=== PATIENT | female | born 1945 | race African-American/Black ===

== ENCOUNTER 2017-06-29 23:47 | Inpatient (IN) | payer OTHER ==
[~2017-06-29] VITALS: Ht 165.1 cm; Wt 79.8 kg
--- NOTE | 2017-06-30 00:03 | NUR ---
BB SELF; TIGHTNESS IN CHEST X 3 HOURS. PT AOX3 RR EVEN AND UNLABORED. NO SOB NOTED. NAD NOTED. NO NVD AT THIS TIME. PT NOT DIAPHORETIC. PT GOWNED AND PLACED ON MONITOR WAITING FOR MD BENJAMIN.
[2017-06-30] MEDS ORDERED: ASPIRIN 325 MG TABLET PO ONE (00:30)
[2017-06-30] MEDS ORDERED: NITROGLYCERIN 0.4 MG/TAB BOTTLE SL ONE (00:30)
[2017-06-30 00:39] LABS: CALCIUM, SERUM 9.1 mg/dL (8.5-10.1); CARBON DIOXIDE 26 mmol/L (21-32); CHLORIDE 107 mmol/L (98-107); GLUCOSE 89 mg/dL (74-106); POTASSIUM 3.7 mmol/L (3.5-5.1); SODIUM SERUM 142 mmol/L (136-145); UREA NITROGEN, BLOOD 14 mg/dL (7-18)
--- NOTE | 2017-06-30 00:46 | NUR ---
RADIOLOGY AT BEDSIDE FOR CXR
[2017-06-30 00:47] LABS: TROPONIN I < 0.017 ng/mL (0.00-0.056)
[2017-06-30 00:48] LABS: BASOPHILS # (AUTO) 0.1 /CMM (0.0-0.2); BASOPHILS % (AUTO) 0.7 % (0.0-2.0); EOSINOPHILS # (AUTO) 0.4 /CMM (0.0-0.7); HEMATOCRIT 40 % (33-45); HEMOGLOBIN 13.2 g/dL (11.5-14.8); INR 0.96 (0.87-1.13); LYMPHOCYTES # (AUTO) 2.6 /CMM (0.8-4.8); LYMPHOCYTES % (AUTO) 34.1 % (20.0-44.0); MEAN CORPUSCULAR HEMOGLOBIN 31 PG (26.0-33.0); MEAN CORPUSCULAR HGB CONC 33 g/dl (31.0-36.0); MEAN CORPUSCULAR VOLUME 92 fL (82-100); MONOCYTES # (AUTO) 0.6 /CMM (0.1-1.30); MONOCYTES % (AUTO) 7.4 % (2.0-12.0); NEUTROPHILS # (AUTO) 4.1 /CMM (1.8-8.9); NEUTROPHILS % (AUTO) 52.8 % (43.0-81.0); PLATELET COUNT (AUTO) 295 /CMM (150-450); PROTHROMBIN TIME 10.2 SECS (9.5-12.7); RDW COEFFICIENT OF VARIATION 13.2 (11.5-15.0); RED BLOOD CELL COUNT(AUTO) 4.31 MIL/uL (4.0-5.2); WHITE BLOOD COUNT (AUTO) 7.7 K/uL (4.3-11.0)
[2017-06-30] MEDS ORDERED: ASPIRIN 325 MG TABLET ONE (00:50)
--- NOTE | 2017-06-30 01:11 | NUR ---
DR. ROSE AT BEDSIDE SPEAKING TO PT REGARDING POC
[2017-06-30] MEDS ORDERED: HYDROCODONE/APAP 10/325MG 1 EA TABLET ONE (01:16)
--- NOTE | 2017-06-30 01:29 | NUR ---
DR. ROSE SPEAKING TO DR. HERCULES REGARDING ADMISSION
[2017-06-30] MEDS ORDERED: HYDROCODONE/APAP 10/325MG 1 EA TABLET PO ONE (01:30)
--- NOTE | 2017-06-30 01:30 | NUR ---
ORDERS RECEIVED BY DR. HERCULES
[2017-06-30] MEDS ORDERED: ASPI-605 PO (01:37)
[2017-06-30] MEDS ORDERED: AMLO1CAP8 PO (01:37)
[2017-06-30] MEDS ORDERED: FLUO40CA8 PO (01:37)
[2017-06-30] MEDS ORDERED: TRAZ-147 PO (01:37)
--- NOTE | 2017-06-30 01:38 | NUR ---
PT ASSIGNED TO [facility] 306-1
--- NOTE | 2017-06-30 01:41 | NUR ---
REPORT GIVEN TO JOHNSON GRACIA FOR TELE BED 306-1
[2017-06-30 02:00] VITALS: BP 171/116
[2017-06-30] MEDS ORDERED: Potassium Chloride 20 MEQ in IV NS 0.9% 1,000 ML IV PRN (02:00)
[2017-06-30] MEDS ORDERED: hydrALAZINE HCL 10 MG TABLET PO PRN (02:00)
--- NOTE | 2017-06-30 02:05 | NUR ---
PT TRASNFERRED TO [facility] 306-1 FOR TERI
[2017-06-30] MEDS ORDERED: ONDANSETRON HCL/PF 4 MG/2 ML VIAL ONE (02:22)
[2017-06-30] MEDS ORDERED: HYDROMORPHONE INJ 2 MG/ML DISP.SYRIN ONE (02:24)
[2017-06-30] MEDS: HYDROMORPHONE INJ 2 MG/ML DISP.SYRIN IV PRN ×4 (02:29→17:14)
[2017-06-30] MEDS ORDERED: HYDROMORPHONE 1 MG/1 ML DISP.SYRIN IV PRN (02:30)
[2017-06-30] MEDS ORDERED: ONDANSETRON HCL/PF 4 MG/2 ML VIAL IV PRN (02:30)
[2017-06-30 04:00] VITALS: BP 122/73
[2017-06-30] MEDS ORDERED: IV PREMIX 0.45% NS + KCL 1,000 ML IV ONE (04:05)
[2017-06-30 04:30] LABS: BASOPHILS % (AUTO) 0.6 % (0.0-2.0); EOSINOPHILS # (AUTO) 0.3 /CMM (0.0-0.7); EOSINOPHILS % (AUTO) 4.1 % (0.0-6.0); HEMATOCRIT 39 % (33-45); HEMOGLOBIN 13.1 g/dL (11.5-14.8); LYMPHOCYTES # (AUTO) 2.5 /CMM (0.8-4.8); LYMPHOCYTES % (AUTO) 31.1 % (20.0-44.0); MEAN CORPUSCULAR HEMOGLOBIN 31 PG (26.0-33.0); MEAN CORPUSCULAR HGB CONC 33 g/dl (31.0-36.0); MEAN CORPUSCULAR VOLUME 92 fL (82-100); MONOCYTES # (AUTO) 0.5 /CMM (0.1-1.30); MONOCYTES % (AUTO) 6.2 % (2.0-12.0); NEUTROPHILS # (AUTO) 4.7 /CMM (1.8-8.9); PLATELET COUNT (AUTO) 292 /CMM (150-450); RDW COEFFICIENT OF VARIATION 13.3 (11.5-15.0); RED BLOOD CELL COUNT(AUTO) 4.26 MIL/uL (4.0-5.2); WHITE BLOOD COUNT (AUTO) 8.1 K/uL (4.3-11.0)
[2017-06-30 04:49] LABS: ALBUMIN 3.8 g/dL (3.4-5.0); BILIRUBIN,TOTAL 0.3 mg/dL (0.2-1.0); CALCIUM, SERUM 8.6 mg/dL (8.5-10.1); POTASSIUM 3.8 mmol/L (3.5-5.1); TOTAL PROTEIN, SERUM 7.6 g/dL (6.4-8.2)
--- NOTE | 2017-06-30 06:37 | NUR ---
PROP SAWYER NOTES AWAKE & RESPONSIVE. NOT IN ANY DISTRESS. NO SOB NOTED. DENIES ANY PAIN OR DISCOMFORT AT THIS TIME. ON TELE SB @ 58 WITH IVF INFUSING WELL. MONITORED ACCORDINGLY. CALL LIGHT WITHIN REACH. BED IN LOWEST POSITION. SR UP X 2 FOR SAFETY. WILL ENDORSE TO NEXT SHIFT.
[2017-06-30 06:59] VITALS: BP 135/77
[2017-06-30] MEDS ORDERED: PANTOPRAZOLE 40 MG TABLET.DR PO SCH (07:30)
--- NOTE | 2017-06-30 07:53 | NUR ---
BATTERY PARTS ASSEMBLER: INITIAL NOTE RECEIVED PT A/OX4. NO DISTRESS. NO SOB NOTED. SATING AT 96% ROOM AIR. NO CHEST PAIN NOTED. SKIN INTACT. NPO FOR POSSIBLE STRESS TEST. RUNNING 1/2 NS 20 KCL AT 75ML/HR ON RIGHT HAND. SITE CLEAR AND PATENT. NO REDNESS. NO INFILTRATION NOTED. RESTING COMFORTABLY IN BED. CALL LIGHT WITHIN REACH.
[2017-06-30] MEDS ORDERED: ISOSORBIDE MONONITRATE (30MG) 30 MG TAB.SR.24H PO SCH (09:00)
[2017-06-30] MEDS ORDERED: ASPIRIN 325 MG TABLET PO SCH (09:00)
[2017-06-30] MEDS ORDERED: AMLODIPINE BESYLATE 10 MG TABLET PO SCH (09:00)
--- NOTE | 2017-06-30 09:51 | NUR ---
PT HAS BEEN GIVEN PAIN MED DILAUDID 1 MG IV AND STILL CONTINUES TO BE IN PAIN NOTIFIED DR HERCULES WITH ORDERS MADE AND CARRIED OUT.
[2017-06-30] MEDS ORDERED: HYDROCODONE/APAP 5/325MG 1 EACH TABLET PO PRN (10:00)
[2017-06-30] MEDS ORDERED: REGADENOSON 0.4 MG/5 ML DISP.SYRIN IVP ONE (12:00)
--- NOTE | 2017-06-30 12:35 | NUR ---
Pt was picked up by Sha for Lexiscan Cardiac Stress Test.Stable V/S.Administered Dilaudid 1 mg IV for pain mgt for facial discomfort and will monitor,
--- NOTE | 2017-06-30 13:48 | NUR ---
PT RETURNED FROM NUCLEAR MEDICINE. NO LONGER NPO. WILL ADMINISTER ALL MISSED MEDICATIONS ORDERED FROM AM DUE TO BEING NPO. RESTING COMFORTABLY IN BED. CALL LIGHT WITHIN REACH.
--- NOTE | 2017-06-30 14:00 | NUR ---
PT TRANSFERRED BACK DOWN TO NUCLEAR MEDICINE FOR SECOND PART OF STRESS TEST.
[2017-06-30] MEDS: GABAPENTIN 300 MG CAPSULE PO SCH ×2 (14:05→17:14)
[2017-06-30] MEDS: METOPROLOL TARTRATE 50 MG TABLET PO SCH ×2 (14:06→17:14)
--- NOTE | 2017-06-30 15:53 | NUR ---
PT RETURNED FROM NUCLEAR MEDICINE. RESTING COMFORTABLY IN BED. CALL LIGHT WITHIN REACH.
[2017-06-30 16:00] VITALS: BP 118/71
[2017-06-30 17:14] VITALS: BP 117/71
--- NOTE | 2017-06-30 19:03 | NUR ---
MED SURGE RN: CLOSING NOTE PT A/OX4. TOOK ALL MEDICATION. NO ADVERSE REACTIONS NOTED. PAIN CONTROLLED WITH PAIN MEDICATIONS. NO DISTRESS. NO SOB NOTED. ON ROOM AIR SATING AT 98%. NO N/V. PT D/C ORDER PER MD TO HOME. ALL DISCHARGE PAPER WORK SIGNED AND DATED BY PT. EDUCATED PT ABOUT FOLLOW UP WITH PRODUCTION MAINTENANCE MECHANIC IN ONE WEEK. IV HEP LOCK D/C ON LEFT HAND. NO REDNESS NOTED, NO BLEEDING NOTED. AWAITING ARRIVAL OF FAMILY MEMBER TO TAKE HOME VIA PRIVATE CAR. ENDORSED TO NEXT SHIFT NURSE. RESTING COMFORTABLY IN BED. CALL LIGHT WITHIN REACH.
--- NOTE | 2017-06-30 19:50 | NUR ---
MS/RN OPENING NOTES RECEIVED ENDORSEMENT FROM AM RN REGARDING PATIENT DISCHARGE ORDER BY MD AND AWAITING FOR FAMILY TRANSPORTATION. PATIENT ALERT, OREINTED X3 WILL CONTINUE TO PROVIDE CARE AND F/U FOR FAMILY TO MIDDLE SCHOOL LIBRARIAN PATIENT.
--- NOTE | 2017-06-30 20:12 | NUR ---
ms/rn notes PATIENT ALERT, ORIENTED X3, ABLE TO VERBALIZE NEEDS, PICKED UP BY DAUGHTER AND ASSISTED W/ RN ON W/C TO RIDE INSIDE CAR. CAN AMBULATE W/ SUPERVISION AND INFORMED TO SEE MD/DENTIST FOR DENTAL CONCERN. ASSISTED AND PROVIDE EDUCATION FOR PAIN MGMT MONITORING AND F/U W/ MD FOR APPT.
[2017-06-30] MEDS ORDERED: ATORVASTATIN 10 MG TABLET PO SCH (22:00)
== END 2017-06-30 20:05 | disposition home or self-care (01) | DRG 206 ==
LOC: ER 23:51 → TELE 06-30 01:44 → MED 06-30 08:55
PROVIDERS: ADMIT Internal Medicine; ATTEND Internal Medicine
DX: M94.0 Chondrocostal junction syndrome [Tietze] (principal); I10 Essential (primary) hypertension; I25.2 Old myocardial infarction; Z86.73 Personal history of transient ischemic attack (TIA), and cerebral infarction without residual deficits; E78.5 Hyperlipidemia, unspecified; I25.10 Atherosclerotic heart disease of native coronary artery without angina pectoris; Z83.3 Family history of diabetes mellitus; Z98.61 Coronary angioplasty status
CPT/HCPCS: 36415; 71010-TC; 80048-TC; 80053-TC; 80061-TC; 84484-TC; 85025-TC; 85730-TC; 87081-TC; A4606; A9502; J1170; J2405; J2785; J3480; J3490; Z7610

== ENCOUNTER 2017-12-09 01:50 | Inpatient (IN) | payer OTHER ==
[~2017-12-09] VITALS: Ht 165.1 cm; Wt 78.9 kg
[~2017-12-09 01:50] MED LIST: AMLO1CAP8 PO; ASPI-605 PO; FLUO40CA8 PO; TRAZ-147 PO
--- NOTE | 2017-12-09 01:56 | NUR ---
PT C/O MID STERNAL CP X 3 DAYS AND A HEADACHE X 3 DAYS PT TOOK 162MG OF ASPIRIN. PT STATES PAIN LEVEL 9/10 RADIATING TO R SHOULDER/ARM. PT IS AAOX4. RESP EVEN AND UNLABORED. SKIN WNL AND WARM TO TOUCH. NO S/S OF ACUTE DISTRESS NOTED. PT PLACED IN GOWN AND IS PLACED ON THE MONITOR AND POX. AWAITING MD FOR EVAL.
--- NOTE | 2017-12-09 02:10 | NUR ---
BUSINESS SEGMENT MANAGER BEDSIDE FOR CHEST X-RAY
[2017-12-09] MEDS ORDERED: NITROGLYCERIN 0.4 MG/TAB BOTTLE ONE (02:23)
[2017-12-09] MEDS ORDERED: HYDROCODONE/APAP 5/325MG 1 EACH TABLET ONE (02:23)
[2017-12-09] MEDS ORDERED: NITROGLYCERIN 0.4 MG/TAB BOTTLE SL ONE (02:30)
[2017-12-09] MEDS ORDERED: hydrALAZINE HCL IV 20 MG VIAL IV ONE (02:30)
[2017-12-09] MEDS ORDERED: hydrALAZINE HCL IV 20 MG VIAL ONE (02:32)
--- NOTE | 2017-12-09 02:35 | NUR ---
Patient is resting comfortably in bed with eyes closed. Easily aroused. VSS. NO S/S OF DISCOMFORT NOTED.
[2017-12-09 02:43] LABS: BASOPHILS % (AUTO) 0.5 % (0.0-2.0); EOSINOPHILS # (AUTO) 0.5 /CMM (0.0-0.7); EOSINOPHILS % (AUTO) 6.7 % (0.0-6.0); HEMATOCRIT 36 % (33-45); HEMOGLOBIN 12.2 g/dL (11.5-14.8); LYMPHOCYTES # (AUTO) 2.5 /CMM (0.8-4.8); LYMPHOCYTES % (AUTO) 35.3 % (20.0-44.0); MEAN CORPUSCULAR HEMOGLOBIN 31 PG (26.0-33.0); MEAN CORPUSCULAR HGB CONC 34 g/dl (31.0-36.0); MEAN CORPUSCULAR VOLUME 91 fL (82-100); MONOCYTES # (AUTO) 0.5 /CMM (0.1-1.30); MONOCYTES % (AUTO) 7.2 % (2.0-12.0); NEUTROPHILS # (AUTO) 3.5 /CMM (1.8-8.9); NEUTROPHILS % (AUTO) 50.3 % (43.0-81.0); PLATELET COUNT (AUTO) 271 /CMM (150-450); RDW COEFFICIENT OF VARIATION 13.3 (11.5-15.0); RED BLOOD CELL COUNT(AUTO) 3.98 MIL/uL (4.0-5.2)
[2017-12-09 02:47] LABS: CALCIUM, SERUM 9.4 mg/dL (8.5-10.1); CARBON DIOXIDE 27 mmol/L (21-32); CHLORIDE 105 mmol/L (98-107); CREATININE 1.1 mg/dL (0.6-1.3); GLUCOSE 98 mg/dL (74-106); SODIUM SERUM 143 mmol/L (136-145); UREA NITROGEN, BLOOD 16 mg/dL (7-18)
[2017-12-09 02:51] LABS: INR 0.97 (0.87-1.13)
[2017-12-09 02:55] LABS: TROPONIN I < 0.017 ng/mL (0.00-0.056)
[2017-12-09 03:00] LABS: B-TYPE NATRIURETIC PEPTIDE 42 PG/ML (0-125)
--- NOTE | 2017-12-09 03:17 | NUR ---
REPORT GIVEN TO CARTER GASTON FOR TERI.
[2017-12-09] MEDS ORDERED: MAGNESIUM HYDROXIDE 30 ML UDC PO PRN (03:30)
[2017-12-09] MEDS ORDERED: MORPHINE SULFATE INJ 2 MG/ML DISP.SYRIN IV PRN (03:30)
[2017-12-09] MEDS ORDERED: Z GUARD REMEDY 2 OZ OINT TP PRN (03:30)
[2017-12-09] MEDS ORDERED: ACETAMINOPHEN 325 MG TABLET PO PRN (03:30)
[2017-12-09] MEDS ORDERED: ZOLPIDEM TARTRATE 5 MG TABLET PO PRN (03:30)
[2017-12-09] MEDS ORDERED: ONDANSETRON HCL/PF 4 MG/2 ML VIAL IVP PRN (03:30)
[2017-12-09 04:00] VITALS: BP 179/109
[2017-12-09] MEDS ORDERED: MORPHINE SULFATE INJ 4 MG/ML DISP.SYRIN ONE (04:13)
[2017-12-09] MEDS: HYDROCODONE/APAP 5/325MG 1 EACH TABLET PO PRN ×3 (04:40→17:05)
--- NOTE | 2017-12-09 04:49 | NUR ---
RN NOTES ADMITTED PATIENT FROM ER VIA STRETCHER ACCOMPANIED BY 2 STAFF WITH NO RESPIRATORY DISTRESS OR SHORTNESS OF BREATH. BREATHING EVEN AND UNLABORED. ALERT AND ORIENTED. VERBALLY ABLE TO COMMUNICATE NEEDS. COMPLAINT OF HEADACHE 07/18, MORPHINE INJ ADMINISTERED NOT EFFECTIVE. GAVE NORCO 5/325 1 TABLET, WITH SOME RELIEF. VITAL SIGNS WNL. WILL CONTINUE TO MONITOR.
--- NOTE | 2017-12-09 06:26 | NUR ---
RN CLOSING NOTES IN BED RESTING COMFORTABLY WITH NO DISTRESS NOTED. BREATHING EVEN AND UNLABORED. ROOM AIR TOLERATING WELL. PATIENT STILL WITH HEADACHE 01/16. WILL ENDORSE TO AM SHIFT FOR CONTINUITY OF CARE
--- NOTE | 2017-12-09 07:51 | NUR ---
RN INITIAL NOTES PT RECEIVED IN BED, ALERT AND ORIENTED, ABLE TO MAKE NEEDS KNOWN. PT COMPLAINING OF HEADACHE GREATER 10. RN SUGGESTED NON PHARMACOLOGICAL TO RELIEF HEADACHES. PT ACKNOWLEDGE AND UNDERSTANDING. RN WILL DISCUSS HOME MEDICATIONS, PT ABLE TO SELF TURN AND AMBULATE. NO SOB OR DISTRESS NOTED. RN WILL CONTINUE TO FOLLOW THROUGHOUT THE DAY.
[2017-12-09 08:00] VITALS: BP 129/73
[2017-12-09 08:05] LABS: BASOPHILS # (AUTO) 0.1 /CMM (0.0-0.2); BASOPHILS % (AUTO) 0.8 % (0.0-2.0); EOSINOPHILS # (AUTO) 0.5 /CMM (0.0-0.7); EOSINOPHILS % (AUTO) 6.6 % (0.0-6.0); HEMATOCRIT 38 % (33-45); HEMOGLOBIN 12.9 g/dL (11.5-14.8); LYMPHOCYTES # (AUTO) 1.6 /CMM (0.8-4.8); LYMPHOCYTES % (AUTO) 23.6 % (20.0-44.0); MEAN CORPUSCULAR HEMOGLOBIN 31 PG (26.0-33.0); MEAN CORPUSCULAR HGB CONC 34 g/dl (31.0-36.0); MEAN CORPUSCULAR VOLUME 90 fL (82-100); MONOCYTES # (AUTO) 0.5 /CMM (0.1-1.30); MONOCYTES % (AUTO) 6.7 % (2.0-12.0); NEUTROPHILS # (AUTO) 4.3 /CMM (1.8-8.9); NEUTROPHILS % (AUTO) 62.3 % (43.0-81.0); PLATELET COUNT (AUTO) 280 /CMM (150-450); RDW COEFFICIENT OF VARIATION 13.2 (11.5-15.0); WHITE BLOOD COUNT (AUTO) 6.9 K/uL (4.3-11.0)
[2017-12-09 08:13] VITALS: BP 129/73
[2017-12-09 08:22] LABS: CALCIUM, SERUM 9.4 mg/dL (8.5-10.1); PHOSPHORUS 3.6 mg/dL (2.5-4.9); POTASSIUM 3.6 mmol/L (3.5-5.1)
[2017-12-09] MEDS: ENOXAPARIN SODIUM 40 MG/0.4 ML DISP.SYRIN SQ SCH (08:49)
[2017-12-09] MEDS: AMLODIPINE BESYLATE 5 MG TABLET PO SCH (08:50)
[2017-12-09] MEDS: FLUOXETINE HCL 20 MG CAPSULE PO SCH (08:51)
[2017-12-09] MEDS: ASPIRIN 81 MG TAB.CHEW PO SCH (08:51)
[2017-12-09] MEDS: BENAZEPRIL HCL 10 MG TABLET PO SCH (08:51)
[2017-12-09 12:00] VITALS: BP 118/79
[2017-12-09] MEDS: METOPROLOL TARTRATE 50 MG TABLET PO SCH ×3 (12:38→23:57)
[2017-12-09 16:00] VITALS: BP 138/79
--- NOTE | 2017-12-09 18:07 | NUR ---
RN CLOSING NOTE Patient stable throughout the day , she is alert and oriented, patient remains without injury vitals within normal limits , no temp noted throughout the shift, no sob or distress noted. No edema noted, continue to provide knowledge with her blood pressure medications. Will continue plan of care and notify MD with any changes. Continuation of care will be endorsed to pm rn.
[2017-12-09 20:00] VITALS: BP_SYST 118; BP_SYST 125; BP_DIAS 75; BP_DIAS 79
--- NOTE | 2017-12-09 20:00 | NUR ---
RN NOTES RECEIVED PATIENT AWAKE IN BED WATCHING TV WITH NO DISTRESS NOTED. BREATHING EVEN AND UNLABORED. NO COMPLAINT OF PAIN OF THIS TIME. VITAL SIGNS WNL. ALERT AND ORIENTED. ABLE TO VERBALIZE NEEDS. WILL CONTINUE TO MONITOR
[2017-12-09] MEDS ORDERED: TRAZODONE 50 MG TABLET PO SCH (22:00)
[2017-12-10] VITALS: BP 138/75
[2017-12-10] MEDS: HYDROCODONE/APAP 5/325MG 1 EACH TABLET PO PRN
[2017-12-10 04:00] VITALS: BP 138/75
[2017-12-10] MEDS: METOPROLOL TARTRATE 50 MG TABLET PO SCH ×3 (05:37→18:06)
--- NOTE | 2017-12-10 05:38 | NUR ---
rn notes metoprolol held for low bp 91/53 and low hr 51bpm.
--- NOTE | 2017-12-10 06:21 | NUR ---
RN CLOSING NOTES IN BED SLEEPING COMFORTABLY WITH NO DISTRESS NOTED. NO PHYSICAL MANIFESTATION OF PAIN OR DISCOMFORT. NO SIGNIFICANT CHANGE OF CONDITION. WILL ENDORSE TO AM SHIFT FOR CONTINUITY OF CARE.
--- NOTE | 2017-12-10 07:45 | NUR ---
ESTHETICIAN MAKEUP ARTIST NOTE: RECEIVED PATIENT IN BED, ASLEEP BUT AROUSABLE WHEN CALLING HER NAME AND W/ TACTILE STIMULI. NOT ON ANY FORM OF DISTRESS. DENIED PAIN AT THIS TIME. ON DISASTER DIRECTOR, SR= 60. PATIENT KEPT ON NPO DUE TO HER CTA OF THE HEART AND CORONARY ARTERIES. PATIENT IS AWARE ABOUT IT. F/U W/ RADIOLOGY DEPARTMENT ABOUT IT AND ACCORDING TO RAD. JAZIEL TECH HE WILL CALL ONCE A NURSE IS AVAILABLE TO INJECT THE CONTRAST. PATIENT IS READY FOR THE PROCEDURE. AWAITING FOR THE INSURANCE JOB TITLES TO GET THE PATIENT FOR THE TEST. BED LOCKED AT ALL TIMES AND AT THE LOWEST POSITION. CALL LIGHT WITHIN REACH. NEEDS ANTICIPATED.
[2017-12-10 08:00] VITALS: BP 111/65
[2017-12-10] MEDS ORDERED: CT SWABBABLE VALVE TRANS SET 1 EA INFUS.SET MC ONE (09:38)
[2017-12-10] MEDS ORDERED: IOHEXOL-350 100 ML VIAL IV ONE (09:38)
[2017-12-10] MEDS ORDERED: IV NS 0.9% 250 ML IV ONE (09:40)
[2017-12-10] MEDS: ASPIRIN 81 MG TAB.CHEW PO SCH (10:35)
[2017-12-10] MEDS: AMLODIPINE BESYLATE 5 MG TABLET PO SCH (10:35)
[2017-12-10] MEDS: FLUOXETINE HCL 20 MG CAPSULE PO SCH (10:35)
[2017-12-10] MEDS: BENAZEPRIL HCL 10 MG TABLET PO SCH (10:36)
[2017-12-10] MEDS: ENOXAPARIN SODIUM 40 MG/0.4 ML DISP.SYRIN SQ SCH (10:41)
[2017-12-10 16:00] VITALS: BP 113/67
[2017-12-10] MEDS ORDERED: MORPHINE SULFATE INJ 4 MG/ML DISP.SYRIN IV PRN (17:00)
[2017-12-10 18:06] VITALS: BP 123/88
--- NOTE | 2017-12-10 19:30 | NUR ---
RN M/S NOTE: PATIENT WAS PICEKD-UP BY HER DAUGHTER, ANA CRISTINA VIA PRIVATE CAR AND ALL BELONGINGS WERE RELEASED W/ THE PATIENT INCLUDING HER PRESCRIPTION FOR NORCO 5-325MG 1TAB PO QD PRN FOR SEVERE PAIN. PATIENT'S IV PERIPHERAL LINE WAS REMOVED AND TAPED W/ DRY GAUZE AND SECURED W/ TAPE. DENIED ANY CHEST PAIN DURING THE SHIFT. PATIENT WAS VERY PLEASANT. SHE WAS ASSISTED VIA WHEELCHAIR BY THE JUDICIAL LAW CLERK TO THE [facility] TO MEET HER DAUGHTER.
== END 2017-12-10 19:35 | disposition home or self-care (01) | DRG 313 ==
LOC: ER 01:52 → TELE1 02:44 → MEDSG1 12-10 09:11
PROVIDERS: ADMIT Nurse Practitioner Acute Care; ATTEND Nurse Practitioner Acute Care
DX: R07.89 Other chest pain (principal); I25.10 Atherosclerotic heart disease of native coronary artery without angina pectoris; E78.5 Hyperlipidemia, unspecified; F32.9 Major depressive disorder, single episode, unspecified; F41.9 Anxiety disorder, unspecified; G47.00 Insomnia, unspecified; I10 Essential (primary) hypertension; I25.2 Old myocardial infarction; Z82.49 Family history of ischemic heart disease and other diseases of the circulatory system; Z83.3 Family history of diabetes mellitus; Z86.73 Personal history of transient ischemic attack (TIA), and cerebral infarction without residual deficits; Z95.5 Presence of coronary angioplasty implant and graft; Z98.890 Other specified postprocedural states; Z88.1 Allergy status to other antibiotic agents; Z79.899 Other long term (current) drug therapy; Z79.82 Long term (current) use of aspirin
CPT/HCPCS: 36415; 71045-TC; 75574; 80048-TC; 80061-TC; 83735-TC; 83880; 84100-TC; 84484-TC; 85025-TC; 85730-TC; 87081-TC; 93307-TC; A4606; J0360; J1650; J2270; J2405; J7050; Q9967; Z7610